=== PATIENT | female | born 1970 | race Caucasian/White ===

== ENCOUNTER 2018-04-13 17:11 | Emergency (ER) | payer OTHER ==
[~2018-04-13] VITALS: Ht 167.6 cm; Wt 90.7 kg
[~2018-04-13 17:11] MED LIST: BUPR300T4 PO; CIPR500T86 PO; FLAV100T PO; LISI10TA2 PO; TRAM50TA PO
[2018-04-13] MEDS ORDERED: TORADOL IV STA (17:29)
[2018-04-13] MEDS ORDERED: ZOFRAN IV STA (17:29)
[2018-04-13] MEDS ORDERED: NS 1000ML 1,000 ML IV ONE (17:30)
[2018-04-13 17:33] VITALS: BP 201/129
--- NOTE | 2018-04-13 17:34 | ER.PDOC ---
General Chief Complaint: Abdomen Pain Stated Complaint: ABD PAIN Time seen by MD: 17:25 Source: patient Exam Limitations: no limitations History of Present Illness Initial Comments Pain on LLQ and suprapubic area started 90 minutes ago, nausea, dizziness, no vomiting Timing/Duration: 1-3 hours Severity/Quality: severe, cramping Radiation: LLQ, periumbilical Associated Symptoms: nausea/vomiting Exacerbated by: movements Allergies: Coded Allergies: hydrocodone (Verified Allergy, Intermediate, 05/11/16) Home Meds Active Scripts Lisinopril (LISINOPRIL) 10 Mg Tablet, 1 TAB PO DAILY for blood pressure, #30 TAB 4 Refills Prov:DAJUAN OCAMPO MD 05/06/16 Tramadol Hcl (TRAMADOL HCL) 50 Mg Tablet, 50 MG PO Q6 PRN for PAIN, #15 TABLET Prov:MAIDA SOLO MD 05/05/16 Flavoxate Hcl (FLAVOXATE HCL) 100 Mg Tablet, 100 MG PO TID, #21 Prov:MAIDA SOLO MD 05/05/16 Ciprofloxacin Hcl (CIPRO) 500 Mg Tablet, 500 MG PO BID, #14 Prov:MAIDA SOLO MD 05/05/16 Reported Medications Bupropion Hcl (WELLBUTRIN XL) 300 Mg Tab.er.24h, 1 TAB PO DAILY, #90 TAB 3 Refills 05/05/16 Vital Signs First Vital Signs Date Time Temp Pulse Resp B/P (MAP) Pulse Ox O2 Delivery O2 Flow Rate FiO2 18 17:25 97.7 79 22 97 Room Air 97.7 Last Vital Signs Date Time Temp Pulse Resp B/P (MAP) Pulse Ox O2 Delivery O2 Flow Rate FiO2 18 17:25 97.7 79 22 97 Room Air 97.7 Past Medical History Surgical History: cholecystectomy, hysterectomy LMP (females 10-50): hysterectomy Social History Smoking: non-smoker Alcohol Use: none Drug Use: none Constitutional: no symptoms reported EENTM: no symptoms reported Respiratory: no symptoms reported Cardiovascular: no symptoms reported Gastrointestinal: see HPI Genitourinary: see HPI Musculoskeletal: no symptoms reported Skin: no symptoms reported Psychiatric/Neurological: no symptoms reported Endocrine: no symptoms reported Hematologic/Lymphatic: no symptoms reported Physical Exam General Appearance: No Apparent Distress, WD/WN HEENT: PERRL/EOMI, Normal ENT Inspection, TMs Normal, Pharynx Normal Neck: Non-Tender, Full Range of Motion, Supple, Normal Inspection Respiratory: chest non-tender, lungs clear, normal breath sounds, no respiratory distress, no accessory muscle use Cardiovascular: Normal Peripheral Pulses, Regular Rate, Rhythm, No Edema, No Gallop, No JVD, No Murmur Gastrointestinal: Normal Bowel Sounds, No Organomegaly, No Pulsatile Mass, Tenderness (llq AND suprapubic area) Back: Normal Inspection, No CVA Tenderness, No Vertebral Tenderness Extremities: Normal Range of Motion, Non-Tender, Normal Inspection, No Pedal Edema, No Calf Tenderness, Normal Capillary Refill, Pelvis Stable Neurologic/Psychiatric: race steward II-XII NML as Tested, No Motor/Sensory Deficits, Alert, Normal Mood/Affect, Oriented x 3 Skin: Normal Color, Warm/Dry Lymphatic: No Adenopathy Course Vitals & review Data Vital Sign - Last 24 Hours 04/13/18 17:25 Temp 97.7 97.7 Pulse 79 Resp 22 Pulse Ox 97 O2 Delivery Room Air Departure Time of Disposition: 18:45 Disposition: 01 HOME, SELF-CARE Impression: Primary Impression: Gastroenteritis due to food toxin Condition: Stable Patient Instructions: Abdominal Pain, Viral Gastroenteritis, Dpna-wg-Awet Referrals: SHMUEL ELENA MD (PCP) PRIMARY CARE PROVIDER Duration or Time Spent with Pa: 10 DINORA BERTRAND MD Apr 13, 2018 17:34
[2018-04-13 17:44] LABS: BASOPHIL % 0.3 % (0.0-0.2); EOSINOPHIL # 0.1 10^3/uL (0.0-0.2); EOSINOPHIL % 1.6 % (0.0-5.0); HEMOGLOBIN 13.3 g/dL (12.0-15.0); LYMPHOCYTES # 1.6 10^3/uL (1.0-4.8); LYMPHOCYTES % 27.7 % (24.0-44.0); MEAN CELL HGB 30.9 pg (26-34); MEAN CELL HGB CONCENTRATION 33.8 g/dL (33-37); MEAN CORP VOLUME 91.4 fL (78-100); MEAN PLATELET VOLUME 9.6 fL (7.8-11.0); MONOCYTES # 0.5 10^3/uL (0.3-0.8); MONOCYTES % 9.1 % (5.0-12.0); NEUTROPHIL # 3.5 10^3/uL (1.8-7.7); NEUTROPHILS % 61.1 % (41.0-85.0); WHITE BLOOD CELL 5.7 10^3/uL (4.5-11.0)
[2018-04-13 17:51] LABS: BILIRUBIN,URINE NEGATIVE (NEGATIVE); UROBILINOGEN,URINE NORMAL (NEGATIVE)
[2018-04-13] MEDS ORDERED: TORADOL ONE (17:55)
[2018-04-13] MEDS ORDERED: NS 1000ML 1,000 ML ONE (17:55)
[2018-04-13] MEDS ORDERED: ZOFRAN ONE (17:55)
[2018-04-13 18:04] LABS: CALCIUM 9.1 mg/dL (8.4-10.5); CARBON DIOXIDE 28.5 mmol/L (20.0-32)
--- NOTE | 2018-04-13 18:05 | NUR ---
CT Patient gone to CT
[2018-04-13 18:16] LABS: APPEARANCE,URINE SLIGHTLY HAZY (CLEAR); UA COLOR YELLOW (YELLOW)
--- NOTE | 2018-04-13 18:28 | DIREP ---
PROCEDURE:CT ABDOMEN/PELVIS W/O CONTRAST COMPARISON:[facility], CT, CT ABD/PELVIS W/O, 05/04/2016, 11:57 PM. INDICATIONS:LLQ pain TECHNIQUE:Axial images were created through the abdomen and pelvis without intravenous contrast material. No oral contrast was administered. Sagittal and coronal reconstructions were performed from source images. FINDINGS: LUNG BASES:No suspicious airspace consolidation or pleural effusion. LIVER:Tiny low-attenuation focus within the anterior aspect of the liver near the fissure for the ligamentum teres may potentially reflect a small cyst or hemangioma. This is incompletely characterized by the lack of intravenous contrast, but does appear fairly similar to the previous study. BILIARY:Previous cholecystectomy. PANCREAS:No suspicious pancreatic abnormality. SPLEEN:The spleen is not significantly enlarged. No focal splenic lesion identified. ADRENALS:The adrenal glands are unremarkable. URINARY TRACT:No urinary calculi or hydronephrosis. No suspicious renal contour deforming lesion is identified. AORTA/VASCULAR:No aneurysmal dilatation. RETROPERITONEUM:No suspicious retroperitoneal lymphadenopathy. BOWEL/MESENTERY:No evidence for small bowel obstruction. No gross colonic abnormality. Normal appendix. No free air. ABDOMINAL WALL:No significant hernia. PELVIC ORGANS:Urinary bladder is nondistended. The uterus is absent. No free fluid within the pelvis. BONES:No acute abnormality. CONCLUSION: 1. No acute intra-abdominal abnormality. No urinary calculi or hydronephrosis. No gross colonic abnormality. Normal appendix. Dictated by: Kodak Gonzalez M.D. On 04/13/2018 at 06:19 PM
[2018-04-13 18:56] VITALS: BP 163/98
== END 2018-04-13 18:57 | disposition home or self-care (01) ==
LOC: ER 17:11
DX: A05.9 Bacterial foodborne intoxication, unspecified (principal); R42 Dizziness and giddiness; Z79.899 Other long term (current) drug therapy; Z88.8 Allergy status to other drugs, medicaments and biological substances
CPT/HCPCS: 36415; 74176; 80053; 81000; 82150; 83690; 85025; 87077; 87086; 87186; 96361; 96374; 96375; 99285; J1885; J2405; J7030